=== PATIENT | male | born 1955 | race African-American/Black ===

== ENCOUNTER 2021-04-06 17:36 | Emergency (ER) | payer MEDICARE, OTHER ==
[~2021-04-06] VITALS: Ht 182.9 cm; Wt 68.0 kg
--- NOTE | 2021-04-06 18:01 | PHYS DOC ---
Past History Past Medical History: Anemia, Arthritis, CAD, CHF, Constipation, Heart Disease, Hypertension, Pneumonia, Other Past Medical History Enlarged Prostate Smoking: Cigarettes Drug Use: Other (Hx polysubstance abuse) General Adult EDM: Chief Complaint: FATIGUE HPI: HPI: ". I ve been just feeling run down.. fatigued.. more tired than usual.. my daughter made me come in...".." I usually go to the [facility]...".. "I Just got a little behind on my water pills.. and that make me get short of breath..... ".. " But she would not let up.. so here I am..".. " I am not going to be admitted.. I got latter-day in the morning... Go the [facility]... I got other things to do... And other people to see. ".." My family called the ambulance on me.. or I would not be here...".." I am not demented or anything... I can make my own decisions...".." You can't make me stay..." Patient is a 66 year old male who presents with increased fatigue, dyspnea, malaise. Patient advised he been compliant with his meds from [facility]. Patient has past medical history of hypertension, insomnia, polysubstance abuse,, CHF, COPD and emphysema, BPH, arthritis, anemia, renal insufficiency. Patient has had two Moderna vaccinations two months ago. Follows at [facility]. The. patient demanding discharge almost immediately after arrival. Did agree to baseline labs and EKG and chest x-ray. Patient denies any fever or chills. No recent travel. No severe ill contacts. Patient does continue to smoke. Patient advised he was forced to come here by his family particularly his daughter. History per paramedics advised family wanting patient transported to the emergency department because he had not been eating well, more fatigue and noncompliant with his medications. Review of Systems: Review of Systems: Constitutional: Denies fever or chills Eyes: Denies change in visual acuity HENT: Denies nasal congestion or sore throat Respiratory: States he always has shortness of breath because of his COPD Cardiovascular: Denies chest pain or edema GI: Denies abdominal pain, nausea, vomiting, bloody stools or diarrhea : Denies dysuria Musculoskeletal: Denies back pain or joint pain. Complains of fatigue Integument: Denies rash Neurologic: Denies headache, focal weakness or sensory changes Endocrine: Denies polyuria or polydipsia Lymphatic: Denies swollen glands Psychiatric: Denies depression or anxiety Family History: Family History: Noncontributory to presentation Current Medications: Current Meds: See nursing for home meds Allergies: Allergies: See nursing Physical Exam: PE: Constitutional: , no acute distress, non-toxic appearance. [] HENT: Normocephalic, atraumatic, bilateral external ears normal, oropharynx moist, no oral exudates, nose injected turbinates. Eyes: PERRLA, EOMI, conjunctiva normal, no discharge. [] Neck: Normal range of motion, no tenderness, supple, no stridor. [] Cardiovascular: Tachycardia heart rate regular rhythm, no murmur [] PMI to the left.The bedside monitor shows a sinus tachycardia rhythm with a bundle branch block. Lungs & Thorax: Bilateral breath sounds equal apex with scattered wheezes and bilateral crackles on auscultation [] Abdomen: Bowel sounds decreased, soft, no tenderness, no masses, no pulsatile masses. Distended. Skin: Warm, dry, no erythema, no rash. [] Back: No tenderness, no CVA tenderness. [] Extremities: No tenderness, no cyanosis, no clubbing, ROM intact, ankle edema. Arthritic changes. No cording Neurologic: Alert and oriented X 3, moves all, extremities on request, does have distal sensory, no focal deficits noted. [] Psychologic: Affect impatient, judgement normal, mood normal. Demanding discharge almost immediately after arrival EKG: EKG: My interpretation EKG shows a sinus tachycardia at 102 bpm. Left axis deviation. Some fascicular block and bundle branch changes. Abnormal EKG. Strain pattern. [] Radiology/Procedures: Radiology/Procedures: [][address] [address] IMAGING REPORT Signed PATIENT: GAYATRI FRANCO ACCOUNT: [id number] : 1955 LOCATION: ER AGE: 66 SEX: M EXAM STATUS: REG ER ORD. PHYSICIAN: SAKINA SMITH MD REASON: dyspnea PROCEDURE: PORTABLE CHEST 1V Exam: Chest one view INDICATION: Dyspnea TECHNIQUE: Frontal view of the chest Comparisons: None FINDINGS: Heart is mildly enlarged. Pulmonary vessels are within normal limits. The lung and pleural spaces are clear. IMPRESSION: No acute pulmonary process. Electronically signed by: Sammy Wick MD (04/06/2021 6:36 PM) LORRAINEMADDIE DICTATED AND SIGNED BY: SAMMY WICK MD DATE: 04/06/211834 CC: SAKINA SMITH MD; PCP,UNKNOWN ~MTH0 [address] [place] [id number] IMAGING REPORT Signed PATIENT: GAYATRI FRANCO ACCOUNT: [id number] : 1955 LOCATION: ER AGE: 66 SEX: M EXAM STATUS: REG ER ORD. PHYSICIAN: SAKINA SMITH MD REASON: dyspnea PROCEDURE: PORTABLE CHEST 1V Exam: Chest one view INDICATION: Dyspnea TECHNIQUE: Frontal view of the chest Comparisons: None FINDINGS: Heart is mildly enlarged. Pulmonary vessels are within normal limits. The lung and pleural spaces are clear. IMPRESSION: No acute pulmonary process. Electronically signed by: Sammy Wick MD (04/06/2021 6:36 PM) LORRAINEMADDIE DICTATED AND SIGNED BY: SAMMY WICK MD DATE: 04/06/211834 CC: SAKINA SMITH MD; PCP,UNKNOWN ~MTH0 0 Heart Score: C/O Chest Pain: No HEART Score for Chest Pain: HEART Score for Chest Pain Response (Comments) Value History Moderately Suspicious 1 ECG Nonspecific Repolarizatio 1 Age > 65 2 Risk Factors 1 or 2 Risk Factors 1 Troponin < Normal Limit 0 Total 5 Risk Factors: Risk Factors: DM, Current or recent (<one month) smoker, HTN, HLP, family history of CAD, obesity. Risk Scores: Score 0 - 3: 2.5% MACE over next 6 weeks - Discharge Home Score 4 - 6: 20.3% MACE over next 6 weeks - Admit for Clinical Observation Score 7 - 10: 72.7% MACE over next 6 weeks - Early Invasive Strategies Course & Med Decision Making: Course & Med Decision Making Pertinent Labs and Imaging studies reviewed. (See chart for details) Patient demanding discharge. Patient declined further work-up. [facility] Encourage patient not smoke. Encourage patient not using illicit drugs. Advised patient of his abnormal labs. Patient return if he elects to be admitted or have further evaluation. Must keep follow-up at [facility]. Begged patient to reconsider her decision to leave however insistent that he would not be admitted. Impression: 1. History of fatigue 2. CHF diastolic dysfunction-BNP 7,117 3. Tobacco use 4. COPD/emphysema 5. Drugs screen positive for cocaine 6. Mild elevation in creatinine 1.5 7. Hyponatremia 128 8. Anemia hemoglobin 10.3 9. Malnutrition albumin 2.7 10. Hypomagnesia 1.7 11. Constipation 12. Completed COVID vaccinations- Moderna [] Dragon Disclaimer: Dragon Disclaimer: This electronic medical record was generated, in whole or in part, using a voice recognition dictation system. Departure Departure: Referrals: PCP,UNKNOWN (PCP) Scripts Cephalexin (KEFLEX) 750 Mg Capsule 500 MG PO TID for bronchitis for 10 Days, #30 CAP Prov: SAKINA SMITH MD 04/06/21 [place] Disclaimer This chart was dictated in whole or in part using Voice Recognition software in a busy, high-work load, and often noisy Emergency Department environment. It may contain unintended and wholly unrecognized errors or omissions. Dragon Disclaimer This chart was dictated in whole or in part using Voice Recognition software in a busy, high-work load, and often noisy Emergency Department environment. It may contain unintended and wholly unrecognized errors or omissions. SAKINA SMITH MD Apr 06, 2021 18:01
[2021-04-06] MEDS ORDERED: IPRATRPIUM/ALBUTEROL 0.5/2.5MG 3 ML NEBU. NEB ONE (18:15)
[2021-04-06 18:21] LABS: BASO % 0 % (0-3); EOS % 0 % (0-3); HEMATOCRIT 32.3 % (39.0-53.0); HEMOGLOBIN 10.3 g/dL (13.0-17.5); LYMPH # 0.5 x10^3/uL (1.0-4.8); LYMPH % 7 % (24-48); MEAN CORPUSCULAR HEMOGLOBIN 26 pg (25-35); MEAN CORPUSCULAR HGB CONC 32 g/dL (31-37); MEAN CORPUSCULAR VOLUME 82 fL (79-100); MONO # 0.5 x10^3/uL (0.0-1.1); MONO % 8 % (0-9); NEUT # 5.5 x10^3uL (1.8-7.7); NEUT % 85 % (31-73); PLATELET COUNT 304 x10^3/uL (140-400); RED BLOOD COUNT 3.93 x10^6/uL (4.30-5.70); WHITE BLOOD COUNT 6.5 x10^3/uL (4.0-11.0)
[2021-04-06 18:23] LABS: CALCIUM 8.3 mg/dL (8.5-10.1); CREATININE 1.5 mg/dL (0.7-1.3); GFR 56.5
--- NOTE | 2021-04-06 18:34 | EKG ---
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
[2021-04-06 18:35] LABS: ALBUMIN 2.7 g/dL (3.4-5.0); DIRECT BILIRUBIN 0.1 mg/dL (0.0-0.2); MAGNESIUM 1.7 mg/dL (1.8-2.4); TOTAL BILIRUBIN 0.4 mg/dL (0.2-1.0); TOTAL PROTEIN 6.9 g/dL (6.4-8.2)
--- NOTE | 2021-04-06 18:38 | RAD ---
Exam: Chest one view INDICATION: Dyspnea TECHNIQUE: Frontal view of the chest Comparisons: None FINDINGS: Heart is mildly enlarged. Pulmonary vessels are within normal limits. The lung and pleural spaces are clear. IMPRESSION: No acute pulmonary process. Electronically signed by: Sammy Alvarez MD (04/06/2021 6:36 PM) LUPILLO
[2021-04-06] MEDS ORDERED: IV RINGERS SOLUTION,LACTATED 1,000 ML IV SCH (19:00)
[2021-04-06] MEDS ORDERED: ASPIRIN CHEWABLE 81 MG TABLET. PO ONE (19:00)
[2021-04-06] MEDS ORDERED: methylPREDNISolone SOD SUCC PF 125 MG/2 ML VIAL. IV ONE (19:00)
[2021-04-06] MEDS ORDERED: SODIUM BICARB ADULT 8.4% 50 MEQ/50 ML DISP.SYRIN. IV ONE (20:30)
[2021-04-06] MEDS ORDERED: cloNIDine HCL 0.1 MG TABLET PO ONE (20:30)
[2021-04-06] MEDS ORDERED: MAGNESIUM SULFATE 2GM 50 ML IV ONE (20:30)
[2021-04-06] MEDS ORDERED: cloNIDine TTS-2 1 PATCH PATCH TD ONE (20:30)
[2021-04-06] MEDS ORDERED: AZITHROMYCIN 250 MG TABLET. PO ONE (20:30)
[2021-04-06] MEDS ORDERED: FUROSEMIDE 40 MG/4 ML VIAL IVP ONE (20:30)
[2021-04-06] MEDS ORDERED: MAGNESIUM HYDROXIDE 2,400 MG/30 ML ORAL.SUSP. PO ONE (21:30)
[2021-04-06 21:35] VITALS: BP 127/69
[2021-04-06] MEDS ORDERED: CEPH750C9 PO (22:17)
[2021-04-06 22:34] LABS: AMPHETAMINE/METHAMPHETAMINE NEG (NEG); BARBITURATES NEG (NEG); BENZODIAZEPINES NEG (NEG); CANNABINOIDS NEG (NEG); COCAINE POS (NEG); METHADONE NEG (NEG); OPIATES POS (NEG); PHENCYCLIDINE NEG (NEG)
[2021-04-06 23:24] LABS: BILIRUBIN,URINE NEG (NEG); CLARITY,URINE CLEAR; COLOR,URINE YELLOW; GLUCOSE,URINE NEG (NEG); NITRITE,URINE NEG (NEG); UROBILINOGEN,URINE 0.2 mg/dL (0.2 mg/dL)
[2021-04-06 23:26] LABS: BACTERIA,URINE 0 /HPF (0-FEW); RBC,URINE OCC /HPF (0-2); SQUAMOUS EPITHELIAL CELL,UR OCC /LPF; WBC,URINE 0 /HPF (0-4)
== END 2021-04-06 21:50 | disposition home or self-care (01) ==
LOC: ER 17:36
DX: J44.9 Chronic obstructive pulmonary disease, unspecified (principal); I11.0 Hypertensive heart disease with heart failure; I50.30 Unspecified diastolic (congestive) heart failure; E87.1 Hypo-osmolality and hyponatremia; D64.9 Anemia, unspecified; E83.42 Hypomagnesemia; K59.00 Constipation, unspecified; F17.210 Nicotine dependence, cigarettes, uncomplicated
CPT/HCPCS: 36415; 71045; 80048; 80076; 80307; 81001; 82550; 83690; 83735; 83880; 84443; 84484; 85025; 93005; 94640; 96361; 96374; 96375; 99285; J1940; J2930; J7120

== ENCOUNTER 2021-11-10 02:32 | Emergency (ER) | payer MEDICARE, OTHER ==
[~2021-11-10] VITALS: Ht 182.9 cm; Wt 68.0 kg
[~2021-11-10 02:32] MED LIST: CEPH750C9 PO; DEXTROSE 50% 25 GM / 50ML DISP.SYRIN. IV ONE; EPINEPHrine SYRINGE 1 MG/10 ML SYRINGE. ONE; NALOXONE 0.4 MG/ML VIAL. ONE
[2021-11-10] MEDS ORDERED: FUROSEMIDE 100 MG/10 ML VIAL ONE (02:53)
[2021-11-10] MEDS ORDERED: DEXTROSE 50% 25 GM / 50ML DISP.SYRIN. IV ONE (02:55)
--- NOTE | 2021-11-10 03:53 | PHYS DOC ---
Past History Past Medical History: Anemia, Arthritis, CAD, CHF, Constipation, Heart Disease, Hypertension, Pneumonia, Other Additional Past Medical Histor: poly substance abuse,eczema, sleep apnea, an emia, pneumonia Additional Past Surgical Histo: hernia Smoking: Cigarettes Alcohol Use: Occasionally Drug Use: Other Adult General Chief Complaint Chief Complaint: CPR/FULL ARREST HPI HPI Patient is a 66-year-old male presenting via EMS for CODE BLUE. Little is known about patient, it was reported per EMS that patient who lives home alone was found acutely ill-appearing by a friend he was checking up on him as patient had reported not feeling well for several days prior. Patient's parents prompted friend to call EMS. On arrival, EMS reports that there were numerous individuals at the scene who ultimately fled. Prior to flying, bystander reported that patient became unresponsive approximately 20 minutes prior to EMS arrival. Appropriate BLS/ACLS started, Luis Fernando machine applied and patient was emergently transported to our facility. Patient was found to be in PEA on arrival, was later found to be in V. tach and received x1 defib, patient also received x3 doses of epinephrine prior to ER arrival. No other information available, no family immediately available to assist with history Review of Systems Review of Systems Unobtainable due to mentation and ongoing cardiac arrest Current Medications Current Medications Current Medications Medications (Trade) Dose Ordered Sig/Gladys Start Time Stop Time Status Last Admin Dose Admin Dextrose (Dextrose 50%-Water Syringe) 25 gm STK-MED ONCE 11/10/21 02:55 11/10/21 02:55 [facility] Furosemide (Lasix) 100 mg STK-MED ONCE 11/10/21 02:53 11/10/21 02:54 [facility] Allergies Allergies Allergies Coded Allergies Type Severity Reaction Last Updated Verified erythromycin base Allergy Intermediate "DOESN'T REMEMBER" 04/06/21 Yes etanercept Allergy Intermediate 04/06/21 Yes methotrexate Allergy Intermediate 04/06/21 Yes Physical Exam Physical Exam Constitutional: Toxic appearing. Eye gel in place with Luis Fernando machine actively giving chest compressions and a toxic appearing thin and age-appropriate male. Left lower extremity IO in place but reportedly infiltrated on ER arrival HEENT: Head: Normocephalic and atraumatic. TMs clear, no hemotympanum Conjunctivae and EOM are normal. Pupils are equal, round, and nonreactive to light Oropharynx is clear, dry, poor dentition globally No hematomas or lacerations or abrasions to face or scalp I gel in adequate position, no malocclusion, dentition intact Nares clear, no nasal septal hematoma Midface stable Neck: C-spine midline nontender, no step-offs Cardiovascular: Unable to fully evaluate due to Luis Fernando machine in center of chest in appropriate position. No edema Pulmonary/Chest: Mechanical breath sounds with significant rales present to bilateral lung cabrera Abdominal: Soft. Bowel sounds are normal. Pt exhibits no distension. There is no tenderness. Musculoskeletal: No bony tenderness to extremities, no deformities, full ROM extremities Chest wall stable Pelvis stable and non-tender No vertebral TTP and spine without stepoffs Neurological: GCS 3 Not oriented and/or alert No purposeful movements in extremities Downgoing toes bilaterally to stimulation No purposeful and/or signs of meaningful life on arrival with fixed dilated pupils, no gag reflex and/or ocular reflex Skin: Skin is warm and dry. No abrasions, no lacerations Psychiatric: Unable to fully assess due to ongoing cardiac resuscitation EKG EKG [] Radiology/Procedures Radiology/Procedures [] Heart Score C/O Chest Pain: N/A Risk Factors: Risk Factors: DM, Current or recent (<one month) smoker, HTN, HLP, family history of CAD, obesity. Risk Scores: Risk Factors: DM, Current or recent (<one month) smoker, HTN, HLP, family history of CAD, obesity. Course & Med Decision Making Course & Med Decision Making Patient evaluated and greeted immediately on ER arrival with cardiac resuscitation still ongoing GCS 3. Luis Fernando machine in place. Patient transferred to ER [facility] with pads applied Appropriate ACLS protocol followed, please see nursing note for specific details. Patient presented in PEA arrest, there was x1 episode of V. fib that was non responsive to defib with all remaining rhythm checks PEA. Patient's prior visits reviewed concerning for heart failure likely reduced ejection fraction from history of illicit drug abuse, kidney disease, hypomagnesemia Additional IO placed for access. There was significant oropharyngeal secretions and bright red blood and so patient was intubated on first attempt without issues with subsequent suction. Remaining H's and T's addressed At this time son arrived. He was not aware of preceding events. I notified him that last known well of patient was approximately 70mins prior without any meaningful signs of life or responsiveness to provided treatment. Son requested we stop ongoing cardiac resuscitation I performed comprehensive evaluation of patient after withdrawal of care. Patient's pupils fixed and nonresponsive to light. Nonresponsive to painful stimuli. No auscultated heart sounds nor breath sounds. No cardiac activity via bedside ultrasound. Patient pronounced at 0309 hrs. I notified patient's son of his father's passing and offered my condolences. Patient a and efforts were made to arrange appropriate /services with assistance from charge nurse. Critical Care Time This patient required critical care. Due to the fact that the patient required a significant amount of one on one physician - patient contact time, ordering and review of studies, arranging urgent treatment with development of a management plan, evaluation of patients response to treatment with frequent reassessments, and discussions with other providers this patient required 35 minutes of critical care time. Critical care time was indicated due to the inherent instability and/or potential for instability in this patient. The critical care time that is allocated to this patient is above and beyond any time spent on any other billable procedures performed on this patient. Dragon Disclaimer Dragon Disclaimer This electronic medical record was generated, in whole or in part, using a voice recognition dictation system. Departure Departure: Impression: Primary Impression: Cardiac arrest Additional Impressions: History of CHF (congestive heart failure) History of illicit drug use Disposition: 20 Condition: Referrals: PCP,UNKNOWN (PCP) Problem Qualifiers KRISTIN MCKEON DO Nov 10, 2021 03:53
== END 2021-11-10 05:18 ==
LOC: ER 02:32
DX: I46.9 Cardiac arrest, cause unspecified (principal); I11.0 Hypertensive heart disease with heart failure; I50.9 Heart failure, unspecified; F19.10 Other psychoactive substance abuse, uncomplicated; F17.210 Nicotine dependence, cigarettes, uncomplicated; Z88.1 Allergy status to other antibiotic agents
CPT/HCPCS: 99291; J0171; J2310